=== PATIENT | male | born 1995 | race Caucasian/White ===

== ENCOUNTER 2017-06-14 22:05 | Emergency (ER) | payer OTHER ==
[~2017-06-14] VITALS: Ht 177.8 cm; Wt 96.2 kg
[2017-06-14 22:15] VITALS: BP 141/77
== END 2017-06-14 22:42 | disposition home or self-care (01) ==
LOC: ER 22:05
DX: J06.9 Acute upper respiratory infection, unspecified (principal); Z91.018 Allergy to other foods
CPT/HCPCS: 99281; A4606; Z7610; Z7502

== ENCOUNTER 2017-06-21 22:52 | Emergency (ER) | payer OTHER ==
[~2017-06-21] VITALS: Ht 177.8 cm; Wt 97.5 kg
[2017-06-21 23:01] VITALS: BP 129/74
[2017-06-21] MEDS ORDERED: TDAP [DIPH/PERTUSSIS/TET] 0.5 ML VIAL IM ONE (23:24)
[2017-06-21] MEDS: TDAP [DIPH/PERTUSSIS/TET] 0.5 ML VIAL IM ONE (23:28)
--- NOTE | 2017-06-21 23:44 | NUR ---
Patient discharged to home in stable condition. Written and verbal after care instructions given. Patient verbalizes understanding of instruction. vss upon discharge. Pt ambulated with steady gait out of ER.
== END 2017-06-21 23:47 | disposition home or self-care (01) ==
LOC: ER 22:55
DX: S60.811A Abrasion of right wrist, initial encounter (principal); Z91.018 Allergy to other foods; W26.8XXA Contact with other sharp object(s), not elsewhere classified, initial encounter; Y93.89 Activity, other specified; Y92.89 Other specified places as the place of occurrence of the external cause; Y99.8 Other external cause status
CPT/HCPCS: 90715; A4606; Z7610

== ENCOUNTER 2017-11-10 22:25 | Emergency (ER) | payer OTHER ==
[~2017-11-10] VITALS: Ht 180.3 cm; Wt 98.9 kg
--- NOTE | 2017-11-10 22:45 | NUR ---
BBSELF C/C SHARP LEFT LOWER ABD PAIN X 1WEEK, +N/D, -V. -DYSURIA. ND NOTED. PT AAO X4, AMB WITH STEADY GAIT. RR EVEN AND UNLABORED. MD AT BEDSIDE FOR EVAL.
[2017-11-10] MEDS ORDERED: ONDANSETRON HCL/PF 4 MG/2 ML VIAL ONE (22:58)
[2017-11-10] MEDS: IV NS 0.9% 1,000 ML BAG IV ONE (22:59)
[2017-11-10] MEDS: ONDANSETRON HCL/PF 4 MG/2 ML VIAL IVP ONE (23:00)
[2017-11-10 23:02] LABS: BASOPHILS # (AUTO) 0.1 /CMM (0.0-0.2); BASOPHILS % (AUTO) 0.5 % (0.0-2.0); HEMATOCRIT 45 % (39-51); HEMOGLOBIN 14.6 g/dL (13.5-17.5); LYMPHOCYTES # (AUTO) 1.6 /CMM (0.8-4.8); LYMPHOCYTES % (AUTO) 17.8 % (20.0-44.0); MEAN CORPUSCULAR HEMOGLOBIN 27 PG (26.0-33.0); MEAN CORPUSCULAR HGB CONC 33 g/dl (31.0-36.0); MEAN CORPUSCULAR VOLUME 83 fL (80-96); MONOCYTES # (AUTO) 0.5 /CMM (0.1-1.30); MONOCYTES % (AUTO) 5.6 % (2.0-12.0); NEUTROPHILS # (AUTO) 6.9 /CMM (1.8-8.9); NEUTROPHILS % (AUTO) 75.1 % (43.0-81.0); PLATELET COUNT (AUTO) 246 /CMM (150-450); RDW COEFFICIENT OF VARIATION 13.6 (11.5-15.0); RED BLOOD CELL COUNT(AUTO) 5.37 MIL/uL (4.5-6.0); WHITE BLOOD COUNT (AUTO) 9.2 K/uL (4.3-11.0)
[2017-11-10 23:04] LABS: APPEARANCE,URINE CLEAR (CLEAR); BILIRUBIN,URINE NEGATIVE (NEGATIVE); BLOOD, URINE NEGATIVE Ery/uL (NEGATIVE); COLOR,URINE YELLOW (YELLOW); KETONES,URINE NEGATIVE (NEGATIVE); LEUKOCYTE ESTERASE ,URINE NEGATIVE (NEGATIVE); NITRITE, URINE NEGATIVE (NEGATIVE); PROTEIN,URINE NEGATIVE (NEGATIVE); UGLUCOSE NEGATIVE (NEGATIVE); UROBILINOGEN,URINE 0.2 EU/dL (0.2)
[2017-11-10 23:10] LABS: CREATININE 1.2 mg/dL (0.6-1.3); POTASSIUM 3.9 mmol/L (3.5-5.1)
[2017-11-10 23:16] LABS: ALBUMIN 4.7 g/dL (3.4-5.0); BILIRUBIN,DIRECT 0.1 mg/dL (0.0-0.2); BILIRUBIN,TOTAL 0.5 mg/dL (0.2-1.0); TOTAL PROTEIN, SERUM 8.3 g/dL (6.4-8.2)
[2017-11-10 23:22] LABS: INR 0.96 (0.87-1.13)
[2017-11-11 00:11] VITALS: BP 144/68
== END 2017-11-11 00:12 | disposition home or self-care (01) ==
LOC: ER 22:37
DX: R10.32 Left lower quadrant pain (principal); F10.10 Alcohol abuse, uncomplicated; Y90.9 Presence of alcohol in blood, level not specified; Z91.018 Allergy to other foods
CPT/HCPCS: 36415; 80048-TC; 80076-TC; 81000-TC; 83690-TC; 85025-TC; 85730-TC; A4606; J2405; J7030; Z7610

== ENCOUNTER 2020-06-12 18:22 | Emergency (ER) | payer OTHER ==
[~2020-06-12] VITALS: Ht 177.8 cm; Wt 108.0 kg
--- NOTE | 2020-06-12 18:31 | NUR ---
CAME IN FOR BLURRING OF VISION, DIZZINESS THAT STARTED AT 1400, TO ER BED 9, HOOKED TO MONITOR, CHANGED TO HOSP GOWN, WARM BLANKET PROVIDED, PATIENT AAO x 4. BILATERAL EQUAL [employer] ASSURANCE REPRESENTATIVE NOTED. DR CORCORAN AT BEDSIDE
--- NOTE | 2020-06-12 18:44 | NUR ---
JEFF VOGT AT BEDSIDE FOR EVAL
[2020-06-12] MEDS ORDERED: MECLIZINE HCL 25 MG TABLET ONE (18:58)
[2020-06-12] MEDS ORDERED: IV NS 0.9% 1,000 ML BAG IV ONE (19:00)
[2020-06-12] MEDS ORDERED: MECLIZINE HCL 12.5 MG TABLET PO ONE (19:00)
--- NOTE | 2020-06-12 19:00 | NUR ---
LIVIER DARBY AT BEDSIDE FOR EKG
[2020-06-12 19:07] LABS: BASOPHILS # (AUTO) 0.1 /CMM (0.0-0.2); BASOPHILS % (AUTO) 0.9 % (0.0-2.0); HEMATOCRIT 47 % (39-51); HEMOGLOBIN 15.1 g/dL (13.5-17.5); LYMPHOCYTES # (AUTO) 1.6 /CMM (0.8-4.8); LYMPHOCYTES % (AUTO) 16.9 % (20.0-44.0); MEAN CORPUSCULAR HGB CONC 32 g/dl (31.0-36.0); MEAN CORPUSCULAR VOLUME 86 fL (80-96); MONOCYTES # (AUTO) 0.7 /CMM (0.1-1.30); MONOCYTES % (AUTO) 7.4 % (2.0-12.0); NEUTROPHILS # (AUTO) 6.8 /CMM (1.8-8.9); NEUTROPHILS % (AUTO) 72.8 % (43.0-81.0); PLATELET COUNT (AUTO) 234 /CMM (150-450); RED BLOOD CELL COUNT(AUTO) 5.41 MIL/uL (4.5-6.0); WHITE BLOOD COUNT (AUTO) 9.3 K/uL (4.3-11.0)
[2020-06-12 19:16] LABS: ALANINE AMINOTRANSFERASE 42 U/L (12-78); ALBUMIN 4.1 g/dL (3.4-5.0); ALKALINE PHOSPHATASE 49 U/L (46-116); ASPARTATE AMINOTRANSFERASE 25 U/L (15-37); BILIRUBIN,DIRECT 0.1 mg/dL (0.0-0.2); BILIRUBIN,TOTAL 0.4 mg/dL (0.2-1.0); CALCIUM, SERUM 9.1 mg/dL (8.5-10.1); CARBON DIOXIDE 28 mmol/L (21-32); CHLORIDE 100 mmol/L (98-107); CREATININE 1.1 mg/dL (0.6-1.3); GLUCOSE 105 mg/dL (74-106); POTASSIUM 3.7 mmol/L (3.5-5.1); SODIUM SERUM 138 mmol/L (136-145); TOTAL PROTEIN, SERUM 7.6 g/dL (6.4-8.2); UREA NITROGEN, BLOOD 18 mg/dL (7-18)
--- NOTE | 2020-06-12 19:16 | NUR ---
REPORT GIVEN TO EDWIN CHIN FOR LUIS ENRIQUE
[2020-06-12 20:21] VITALS: BP 141/83
--- NOTE | 2020-06-12 20:21 | NUR ---
IV removed. Catheter intact and site benign. Pressure and 4x4 applied to site. No bleeding noted.
--- NOTE | 2020-06-12 20:21 | NUR ---
Patient discharged to home in stable condition. Written and verbal after care instructions given. Patient verbalizes understanding of instruction. Pt ambulated out of ED. VSS.
== END 2020-06-12 20:21 | disposition home or self-care (01) ==
LOC: ER 18:27
DX: R42 Dizziness and giddiness (principal); R07.89 Other chest pain; Z90.89 Acquired absence of other organs; Z91.018 Allergy to other foods
CPT/HCPCS: 36415; 71045; 80048; 80076; 82962; 84484; 85025; 93005; 96360; 99285; J7030; J8597